=== PATIENT | male | born 1965 | race Caucasian/White ===

== ENCOUNTER 2020-04-25 14:29 | Outpatient (CLI) | payer OTHER, SELFPAY ==
--- NOTE | ~2020-04-25 | US_ITS ---
EXAMINATION: US thyroid DATE: 04/25/2020 15:15 INDICATION: Cervicalgia TECHNIQUE: Multiple ultrasound images of the thyroid were obtained. COMPARISON: None. FINDINGS: The right thyroid lobe measures 4.8 x 2.5 x 1.4 cm. The left thyroid lobe measures 3.5 x 1.6 x 1.3 c m. Wider than tall 9 x 7 x 4 mm anechoic to hypoechoic spongiform-appearing nodule in the mid right thyroid with smooth margins, posterior acoustic enhancement and no internal echogenic foci (TI-RADS 2 , not suspicious, no FNA recommended). There is normal echotexture, echogenicity and vascular flow th roughout the thyroid gland. IMPRESSION: 1. Likely benign 9 mm TI RADS 2 spongiform nodules in the right thyroid which does not meet criteria for biopsy or imaging follow-up. Recommend clinical follow-up with repeat imaging if there are change s on physical exam. Reviewed, dictated and finalized at location A. IMPRESSION: 1. Likely benign 9 mm TI RADS 2 spongiform nodules in the right thyroid which d oes not meet criteria for biopsy or imaging follow-up. Recommend clinical follo w-up with repeat imaging if there are changes on physical exam.
== END 2020-04-25 14:30 | disposition home or self-care (01) ==
PROVIDERS: PCP Family Medicine; Visit Provider Physician Assistant
DX: E07.9 Disorder of thyroid, unspecified (principal); M54.2 Cervicalgia
CPT/HCPCS: 76536

== ENCOUNTER → 2021-04-24 10:30 | Outpatient (CLI) | payer OTHER, SELFPAY ==
--- NOTE | ~2021-04-24 | US_ITS ---
US abdomen limited INDICATION: Epigastric pain. Bloating. Discomfort after eating. PROCEDURE: Realtime right upper abdominal ultrasound. COMPARISON: No prior studies for comparison. FINDINGS: The pancreas is normal without focal mass or pancreatic ductal dilation. Liver echotexture is normal without focal mass or intrahepatic biliary dilatation. There is normal directional flow i n the portal vein. The gallbladder is normal without stones, gallbladder wall thickening or pericholecystic fluid. Comm on bile duct measures 3 mm. No sonographic Lee's sign. Right renal echotexture is grossly unremar kable. IMPRESSION: 1: Normal limited abdominal ultrasound. Reviewed, dictated and finalized at location A.
== END ==
PROVIDERS: PCP Family Medicine; Visit Provider Family Medicine
DX: R10.13 Epigastric pain (principal)
CPT/HCPCS: 76705

== ENCOUNTER 2021-05-22 09:40 | Outpatient (CLI) | payer OTHER, SELFPAY ==
--- NOTE | ~2021-05-22 | US_ITS ---
EXAMINATION: US thyroid EXAM DATE: 05/22/2021 10:17 INDICATION: nontoxic single thyroid nodule. TECHNIQUE: Multiple grayscale and Doppler images of the thyroid were obtained (by a technologist who performed the scan) and subsequently reviewed. Individual nodules and recommendations may be reporte d in accordance with TI-RADS system as designated by the 2017 ACR White Paper TI-RADS committee. Comp arison is made to prior examination from 04/15/2020. FINDINGS: Right thyroid lobe measures 4.6 x 1.7 x 1.7 cm, the left measuring 3.4 x 1.7 x 1.2 cm. Right thyroid lobe nodule measuring 9 x 4 x 8 mm, size and spongiform appearance stable, likely benign. Notation was made that technologist scanned neck superior to the thyroid in the area of concern, and there was no lymphadenopathy or other sonographic abnormality. IMPRESSION: 1. Unchanged subcentimeter right thyroid lobe nodule likely benign. Return to clinical follow-up and if additional palpable abnormality develops a repeat ultrasound can be obtained. Reviewed, dictated and finalized at location A.
== END 2021-05-22 09:41 | disposition home or self-care (01) ==
PROVIDERS: PCP Family Medicine; Visit Provider Otolaryngology
DX: E04.1 Nontoxic single thyroid nodule (principal)
CPT/HCPCS: 76536

== ENCOUNTER 2021-08-07 06:34 | Outpatient (CLI) | payer OTHER, SELFPAY ==
--- NOTE | ~2021-08-07 | NM_ITS ---
EXAMINATION: NM hepatobiliary wo pharm EXAM DATE: 08/07/2021 10:11 INDICATION: R10.13 - Epigastric pain TECHNIQUE: 4.9 mCi Tc-99m mebrofenin (Choletec) was administered intravenously. Scintigraphic images of the abdomen were obtained for one hour. To obtained gallbladder ejection fraction, patient drank 8 ounces of Ensure and imaging of the gallbladder obtained for one hour following ingestion. Gallbl adder ejection fraction was calculated by the technologist. Correlation is made to right upper quadra nt sonogram 04/24/2021. FINDINGS: There is normal clearance of radiotracer from the blood pool. There is homogeneous tracer u ptake by the liver. Activity progresses to the gallbladder and bowel. The gallbladder ejection fract ion (GBEF) is 72% (most patients with gallbladder dysfunction have GBEF < 35%, but there is slight ov erlap with the normal range of 33-90% using this protocol).] IMPRESSION: Gallbladder ejection fraction 72%, within normal range. Reviewed, dictated and finalized at location A.
== END 2021-08-07 06:35 | disposition home or self-care (01) ==
PROVIDERS: PCP Family Medicine; Visit Provider Family Medicine
DX: R10.13 Epigastric pain (principal)
CPT/HCPCS: 78226; A9537; J2785

== ENCOUNTER 2022-06-23 11:53 | Outpatient (CLI) | payer OTHER, SELFPAY ==
--- NOTE | 2022-06-23 12:45 | ECHO_ITS ---
Patient Info Name: Maninder Gooden Age: 56 years : 1965 Gender: Male Ht: 69 in Wt: 185 lbs BSA: 2.04 m2 HR: 68 bpm BP: 163 / 93 mmHg Technical Quality: Fair Exam Date: 06/23/2022 1:21 PM Exam Location: [facility] Patient Status: Outpatient Admit Date: 06/23/2022 Staff Ordering Physician: Bianca Wade Safety Spec: Catalina Guerrier RDCS Attending Provider: Bianca Wade Referring Physician: Mauro HARDWICK; Exam Type: CA echo doppler color flow Study Info Indications R01.1 - Cardiac murmur, unspecified Complete two-dimensional, color flow and Doppler transthoracic echocardiogram is performed. Summary 1. Complete two-dimensional, color flow and Doppler transthoracic echocardiogram is performed. 2. Left ventricular chamber dimension is normal. 3. Left ventricular systolic function is normal, estimated at 60-65%. 4. The left ventricular diastolic function is normal. 5. E/e' 5 is not elevated. 6. There is trace mitral valve regurgitation. 7. There is trace tricuspid valve regurgitation. 8. No pulmonary hypertension, estimated pulmonary arterial systolic pressure is 25 mmHg. Left Ventricle E/e' 5 is not elevated. Left ventricular chamber dimension is normal. Left ventricular systolic function is normal, estimated at 60-65%. The left ventricular diastolic function is normal. Right Ventricle Right ventricular chamber dimension is normal. Right ventricular systolic function is normal. Left Atria Left atrial chamber dimension is normal. Right Atria Right atrial chamber dimension is normal. Aortic Valve The aortic valve is trileaflet. There is no aortic valve stenosis. There is no aortic valve regurgitation. Pulmonic Valve There is no pulmonic regurgitation. Mitral Valve There is no mitral valve stenosis. There is trace mitral valve regurgitation. Tricuspid Valve There is trace tricuspid valve regurgitation. No pulmonary hypertension, estimated pulmonary arterial systolic pressure is 25 mmHg. Pericardium/Pleural There is no pericardial effusion. Inferior Vena Cava Normal inferior vena cava with >50% collapse upon inspiration consistent with normal right atrial pressure, 5 mmHg. Aorta The aortic root size at the sinus of Valsalva is normal. Left Ventricular Outflow Tract Name Value Normal LVOT 2D LVOT Diameter 2.0 cm LVOT Doppler LVOT Peak Gradient 6 mmHg LVOT Mean Gradient 3 mmHg LVOT VTI 23 cm LVOT VTI/AV VTI Ratio 1.0 LVOT Stroke Volume 70 ml LVOT CO 13.9 l/min LVOT CI 6.8 l/min/m2 Pulmonic Valve Name Value Normal PV Doppler PV Peak Gradient 4
== END 2022-06-23 11:54 | disposition home or self-care (01) ==
PROVIDERS: PCP Family Medicine; Visit Provider Nurse Practitioner Family
DX: R01.1 Cardiac murmur, unspecified (principal)
CPT/HCPCS: 93306

== ENCOUNTER → 2022-07-26 08:11 | Outpatient (CLI) | payer OTHER, SELFPAY ==
--- NOTE | ~2022-07-26 | MR_ITS ---
EXAMINATION: MRA brain wo con DATE: 07/26/2022 08:54 INDICATION: Right-sided headache. TECHNIQUE: Magnetic resonance angiography (MRA) of the brain was performed without intravenous contra st with T1-weighted SPGR by the 3D [id number] technique. Maximum intensity projection 3D-reconstr uctions were obtained. COMPARISON: Brain MRI 10/23/2011 FINDINGS: Left vertebral artery is dominant. There is no significant stenosis of basilar artery or the posterio r cerebral arteries. There is no significant stenosis of the intracranial internal carotid arteries o r anterior or middle cerebral arteries. Anterior communicating artery is normal. Posterior communicat ing arteries are not identified. There is no aneurysm. IMPRESSION: 1. Normal MRA. Reviewed, dictated and finalized at location A. IMPRESSION: 1. Normal MRA.
== END ==
PROVIDERS: PCP Family Medicine; Visit Provider Nurse Practitioner Family
DX: G44.83 Primary cough headache (principal)
CPT/HCPCS: 70544

== ENCOUNTER → 2022-09-24 13:34 | Outpatient (CLI) | payer OTHER, SELFPAY ==
--- NOTE | ~2022-09-24 | XR_ITS ---
XR shoulder RT min 2V DATE: 09/24/2022 14:03 INDICATION: Right shoulder pain and popping for one month. No known injury. TECHNIQUE: 4 views COMPARISON: None FINDINGS: Mild inferior acromioclavicular spurring. No fracture or dislocation, periosteal reaction or bone destruction or abnormal soft tissue calcifica tion of the right shoulder. IMPRESSION: Mild degenerative change at the right acromioclavicular joint Reviewed, dictated and finalized at location A. R QUALITY ANALYST
== END ==
PROVIDERS: PCP Family Medicine; Visit Provider Physician Assistant
DX: M19.011 Primary osteoarthritis, right shoulder (principal)
CPT/HCPCS: 73030

== ENCOUNTER 2024-07-18 14:43 | Outpatient (CLI) | payer OTHER, SELFPAY ==
--- NOTE | ~2024-07-18 | US_ITS ---
EXAMINATION: US thyroid DATE: 07/18/2024 15:02 INDICATION: Thyroid nodule. TECHNIQUE: Multiple ultrasound images of the thyroid were obtained. COMPARISON: Ultrasound 05/22/2021 FINDINGS: The right thyroid lobe measures 4.7 x 1.5 x 1.7 cm. The left thyroid lobe measures 3.6 x 1.3 x 1.1 c m. In the right thyroid lobe, there is an 8 mm solid, hypoechoic, wider than tall nodule with irregu lar margin without echogenic foci (TI-RADS TR4). IMPRESSION: 1. Stable small right thyroid nodule, likely not clinically significant. No follow-up is needed. Reviewed, dictated and finalized at location A. IMPRESSION: 1. Stable small right thyroid nodule, likely not clinically significant. No fol low-up is needed.
== END 2024-07-18 14:44 | disposition home or self-care (01) ==
LOC: MICIMG 14:45
PROVIDERS: PCP Family Medicine; Visit Provider Nurse Practitioner Family
DX: E04.1 Nontoxic single thyroid nodule (principal)
CPT/HCPCS: 76536

== ENCOUNTER 2024-08-02 09:53 | Outpatient (CLI) | payer OTHER, SELFPAY ==
--- NOTE | ~2024-08-02 | US_ITS ---
EXAMINATION: US soft tissue groin RT DATE: 08/02/2024 10:10 INDICATION: Other intra-abdominal and pelvic swelling. TECHNIQUE: Multiple grayscale and Doppler ultrasound images of the right groin were obtained. COMPARISON: CT abdomen and pelvis 10/28/2012 FINDINGS: There is a right inguinal hernia containing fat. No lymphadenopathy. IMPRESSION: 1. Right inguinal hernia containing fat. Reviewed, dictated and finalized at location A.
== END 2024-08-02 09:54 | disposition home or self-care (01) ==
LOC: MICIMG 09:54
PROVIDERS: PCP Family Medicine; Visit Provider Physician Assistant
DX: R19.09 Other intra-abdominal and pelvic swelling, mass and lump (principal); K40.90 Unilateral inguinal hernia, without obstruction or gangrene, not specified as recurrent
CPT/HCPCS: 76882

== ENCOUNTER 2024-09-15 10:05 | Outpatient (CLI) | payer OTHER, SELFPAY ==
--- NOTE | 2024-09-15 10:16 | ECG_ITS ---
Test Date: 2024-09-15 10:33:52 Measurements Intervals [place] Rate: 63 P: 36 SD: 138 QRS: 33 QRSD: 118 T: 34 QT: 397 QTc: 409 Interpretive Statements SINUS RHYTHM INTRAVENTRICULAR CONDUCTION DELAY BORDERLINE ECG No previous ECG available for comparison Electronically Signed On 09-15-2024 10:36:23 ELECTRIC REFRIGERATOR SERVICER by Nii Lay D.O.
== END 2024-09-15 10:06 | disposition home or self-care (01) ==
LOC: ANHSURGERY 10:08
PROVIDERS: PCP Family Medicine; Visit Provider Surgery
DX: E78.5 Hyperlipidemia, unspecified (principal); K40.90 Unilateral inguinal hernia, without obstruction or gangrene, not specified as recurrent; Z01.818 Encounter for other preprocedural examination; I45.9 Conduction disorder, unspecified
CPT/HCPCS: 36415; 86850; 86900; 86901; 93005

== ENCOUNTER 2024-09-19 01:19 | Day surgery (SDC) | payer OTHER, SELFPAY ==
[2024-09-12 11:04] VITALS: BMI 28.8
--- NOTE | 2024-09-12 11:05 | PC.NURSE ---
Report to the Outpatient Waiting Room, entrance under the green pavilion located off [facility], at time _0730_ on date _[id number]_. Planned Procedure Time: _0930_.? Time changes happen often and if your time is changed the preop area will call you the afternoon before. - You and your visitor will be asked to self-screen and do not enter if you have any COVID symptoms. Please call surgeon if you need to reschedule. - A mask is optional within the hospital at this time. Patients may have clear liquids (water, carbonated beverages, clear teas, apple juice) until 3 hours prior to surgery with a maximum of 20 ounces. - No food from midnight until time of surgery and no smoking Take only the following medications with a SIP of water on the morning of surgery: None DO NOT STOP ANY OF YOUR OTHER PRESCRIPTION MEDICATIONS PRIOR TO SURGERY EXCEPT THE FOLLOWING Medications to discontinue per physician ___None____ Please no make-up, nail faroese, hairspray, perfume, deodorant, or body powder the day of surgery.? No jewelry (including any body piercings) or valuables the day of surgery, leave them at home.? Please take a shower or bath the night before, or the morning of, surgery with an antibacterial soap.? Wear comfortable, loose fitting clothing.? - Jewelry must be removed prior to entering the operating room.? Rings and piercings that are not removed may be cut off. - The hospital will not accept responsibility for valuables.? - Please leave all valuables, including medications, at home the day of surgery. If you are going home after surgery, a licensed haul truck driver must drive you home.? - NO public transportation without another adult if you receive anesthesia. - We recommend that an adult stay with you for 24 hours following discharge. - We also recommend that you do not drive, make important decision, drink alcoholic beverages, or take any drugs that were not prescribed by your health care provider for at least 24 hours after your discharge time. Follow any additional instructions given to you from your surgeon. Telephone instructions given to _Mark__and asked if any additional questions and then verbalized understanding. Patient advised to call surgeon office or pre surgery nurse liaison [phone] if any additional questions.
[2024-09-19] VITALS (8 sets, daily range): BP systolic 127–169; BP diastolic 71–91; PULSE 62–72; RESP 10–16; TEMP 36.4; O2SAT 98–100; BMI 29.0
--- NOTE | 2024-09-19 07:21 | PM.IMHP ---
H&P: HPI History of Present Illness Date/Time: 09/19/24 07:21 Chief Complaint: right inguinal hernia Narrative: Maninder is a 58 y/o male who presents to the office at the request of Chaparro Michelle PA-C for an evaluation of an inguinal hernia. Patient reports right groin pain and a bulge on right side that he noticed approximately 2 months ago. He states he has recently had left sided abdominal pain within the last week as well. He is unsure if related to the hernia. Patient had US done on 08/02/24 which showed a right inguinal hernia containing fat. Review of Systems Review of Systems: All systems reviewed & are unremarkable except as noted in HPI and below PMFSH Past Medical History Medical History COPD (chronic obstructive pulmonary disease) Essential (primary) hypertension GERD (gastroesophageal reflux disease) HLD (hyperlipidemia) Surgical History Surgical History Status post arthroscopy of left knee Status post hernia repair Status post orchiopexy Family History Family History Father Hypertension Family history of diabetes mellitus in first degree relative Family history of coronary artery disease Mother Hypertension Cerebrovascular accident Family history of diabetes mellitus in first degree relative Family history of rheumatoid arthritis Sibling Hypertension Family history of diabetes mellitus in first degree relative Social History Social History Smoking packs per day: 1 Smoking cigarettes per day: 20.0 Years smoked: 4 Smoking pack-years: 4.00 Smoking status: Never smoker Tobacco type: cigarettes Second hand tobacco smoke exposure: No Smoking end date: 11/09/84 Alcohol intake: current Drinks per week: 12 Substance use: never Substance use type: does not use Living arrangements: with family Occupation/Education: occupation Gender identity (if verbalized by the patient): Male Spiritual care concerns: No Meds Home Medications and Allergies Home Medications Medication Instructions Recorded Confirmed Type amlodipine 5 mg tablet 5 mg PO DAILY #90 tabs 03/17/24 09/12/24 Rx losartan 100 mg tablet See Rx Instructions .Route 03/18/24 09/12/24 Rx .COMPLEX #90 tabs esomeprazole magnesium 20 mg 20 mg PO DAILY PRN Acid Reflux 09/12/24 09/12/24 History capsule,delayed release (Nexium) pravastatin 40 mg tablet 40 mg PO DAILY #90 tabs 09/13/24 Rx Allergies Allergy/AdvReac Type Severity Reaction Status Date / Time phenobarbital Allergy Unknown Anxiety Verified 09/12/24 10:55 Exam Const: General: cooperative, comfortable and no acute distress Resp: Auscultation: clear to auscultation bilaterally Cardio: Rate: regular rate Rhythm: regular rhythm GI: Inspection: normal to inspection and non-distended GI Palp: No abdominal tenderness and Yes Soft to palpation Other: reducible right inguinal hernia, no left inguinal hernia on exam Assessment and Plan Assessment and plan (1) Right inguinal hernia: Code(s): K40.90 - Unilateral inguinal hernia, without obstruction or gangrene, not specified as recurrent Status: Acute Assessment and Plan: will set up for robotic assisted repair with mesh
--- NOTE | 2024-09-19 07:23 | WPDHPUPDATE1 ---
History and Physical Update Update Date/Time: 09/19/24 07:23 History and Physical has been reviewed, including an updated exam of the patient. There are NO changes in the patient's condition. Risks, benefits, and alternatives have been discussed and questions answered. Patient agrees to proceed with procedure.
[2024-09-19] MEDS: KETOROLAC 15 MG/ML VIAL (*BKC) IV PUSH (08:25)
[2024-09-19] MEDS: ACETAMINOPHEN 500 MG TABLET 1000 MG PO (08:25)
--- NOTE | 2024-09-19 09:11 | WPDANESEPPF ---
Anes - Initial Pre Proc Eval Procedure: Operation Date: 09/19/24 09:30 Proposed Procedures p Robotic Right Inguinal Hernia Repair with Mesh - Lia Hua MD Date/Time: 09/19/24 09:11 Surgeon: Lia Hua MD Pre Op Diagnosis: right inguinal hernia Patient Data Age: 58 Gender: M Height: 1.75 m Weight: 89.1 kg Last Vital Signs Temp 36.4 C L 09/19/24 08:15 Pulse 72 09/19/24 08:15 Resp 16 09/19/24 08:15 BP 169/83 H 09/19/24 08:15 Pulse Ox 98 09/19/24 08:15 O2 Del Method Room Air 09/19/24 08:15 Allergies Allergy/AdvReac Type Severity Reaction Status Date / Time phenobarbital Allergy Unknown Anxiety Verified 09/19/24 08:27 Home Medications Medication Instructions Recorded Confirmed Type amlodipine 5 mg tablet 5 mg PO DAILY #90 tabs 03/17/24 09/12/24 Rx losartan 100 mg tablet See Rx Instructions .Route 03/18/24 09/12/24 Rx .COMPLEX #90 tabs esomeprazole magnesium 20 mg 20 mg PO DAILY PRN Acid Reflux 09/12/24 09/12/24 History capsule,delayed release (Nexium) pravastatin 40 mg tablet 40 mg PO DAILY #90 tabs 09/13/24 Rx Patient hx anesthesia problems: none Family hx anesthesia problems: none Results Review: All pre-operative results and documents have been reviewed as part of the pre-operative evaluation. [facility] Past Medical History Medical History COPD (chronic obstructive pulmonary disease) Essential (primary) hypertension GERD (gastroesophageal reflux disease) HLD (hyperlipidemia) Surgical History Surgical History Status post arthroscopy of left knee Status post hernia repair Status post orchiopexy Family History Family History Father Hypertension Family history of diabetes mellitus in first degree relative Family history of coronary artery disease Mother Hypertension Cerebrovascular accident Family history of diabetes mellitus in first degree relative Family history of rheumatoid arthritis Sibling Hypertension Family history of diabetes mellitus in first degree relative Social History Social History Smoking packs per day: 1 Smoking cigarettes per day: 20.0 Years smoked: 4 Smoking pack-years: 4.00 Smoking status: Never smoker Tobacco type: cigarettes Second hand tobacco smoke exposure: No Smoking end date: 11/09/84 Alcohol intake: current Drinks per week: 12 Substance use: never Substance use type: does not use Living arrangements: with family Occupation/Education: occupation Gender identity (if verbalized by the patient): Male Spiritual care concerns: No Anes - Eval Final PreProcedure Day of Procedure 09/19/24 09:11 Patient weight: overweight Heart: regular rate and rhythm Lungs: clear to auscultation Airway: Mallampati scale class II Neurological: alert and oriented Last oral intake: >/= 8 hours ASA classification: III Emergent: no Anesthetic plan: proceed Anesthesia type and monitoring: general ETT and standard monitoring Results Review: All pre-operative results and documents have been reviewed as part of the pre-operative evaluation. Informed Consent: The patient's anesthetic plan and its attendant risks and benefits were discussed with the patient/family/POA. Questions were solicited and answers provided to the satisfaction of the patient/family/POA.
[2024-09-19] MEDS: ceFAZolin 2 GM/D5W 50 ML 2 GM/50 ML BAG IVPB (09:22)
[2024-09-19] MEDS: BUPIVACAINE/EPINEPHRINE 0.5% 50 ML VIAL 30 ML INFILTRATE (10:03)
--- NOTE | 2024-09-19 10:30 | W.PM.PROC2 ---
Procedure Note - Detailed Date of Procedure 09/19/24 Pre-op Diagnosis right inguinal hernia Post-op Diagnosis Same Procedure Performed robotic assisted right inguinal hernia repair with mesh Surgeon Lia Hua MD Anesthesia General and Local Indications 58 yr-old male with progressively worsening right inguinal hernia over the last few months Findings indirect right inguinal hernia Description of Procedure Patient was brought into the operating room and placed in the supine position. After adequate induction of general anesthesia, the patient was prepped and draped in normal sterile fashion. A time-out was then done to verify the patient's identity, as well as the procedure being performed. Began by making a 8 mm incision in the supraumbilical region, a Veress needle was then placed into the peritoneal cavity. CO2 gas was then insufflated and after adequate pneumoperitoneum was achieved, the Veress needle was removed. I then placed an 8 mm trocar through this incision. I then placed the endoscope through this trocar site and under direct visualization placed 2 further 8 mm ports in the right and left mid abdomen. The [employer] robot was then docked to the 3 trocar sites. I then scrubbed out and went to the robotic console. Upon examining the pelvis, it was noted that the patient had a moderate right inguinal hernia. The left side was examined and no hernia defect was noted , though a previous plug mesh was noted to be well healed. I began by making a preperitoneal flap approximately 6 cm superior to the defect. This flap was carried medially past the umbilical ligaments in laterally to the transversalis. It then began dissection of my medial compartment taking this down to the pubic tubercle. I then began the lateral dissection taking this down to the transversalis fascia. Once these compartments were achieved, I began dissection around the cord structures. A moderate sized indirect hernia was noted at this point. Using careful dissection, was able to reduce indirect hernia sac off the cord structures. Once this was adequately done, I went ahead and placed a large piece of 3D Max mesh into the abdominal cavity. The mesh was carefully positioned, centering the center of the mesh over the indirect defect. Once this was done, was very satisfied with our repair. Using 3-0 Vicryl sutures, I tacked the mesh medially to Griffin's ligament. Two lateral sutures were placed from the mesh to the transversalis fascia. I then closed the peritoneal flap with a running 2.0 V Lock suture. The abdomen was then desufflated, and all ports were removed. All incisions were then closed with the 4.0 monocryl suture. Dermabond was placed on each wound. The patient tolerated the procedure well, was extubated in the operating room postoperatively, and will now be transferred to the recovery room in stable condition. Implants large 3DMax mesh Estimated Blood Loss 10 Drains No Packing No Pathology None sent Complications No immediate complications Condition Stable Disposition PACU [facility] Billing Surgery - Charge Forward: Surgery Billing
[2024-09-19] MEDS: LACTATED RINGERS 1,000 ML 30 ML IV CONT ×2 (10:33)
[2024-09-19] MEDS: oxyCODONE HCL (*CRX) 5 MG TAB IR PO (11:42)
--- NOTE | 2024-09-19 11:48 | SUR.PHASEII ---
Pt ambulated to bathroom and voided unmeasured amt of clear yellow urine without difficulty.
== END 2024-09-19 12:15 | disposition home or self-care (01) ==
PROVIDERS: PCP Family Medicine; Visit Provider Surgery
PROC: 8E0Y4CZ Robotic Assisted Procedure of Lower Extremity, Percutaneous Endoscopic Approach (ICD-10-PCS; CPT 49650; principal; 2024-09-19 09:30)
DX: K40.90 Unilateral inguinal hernia, without obstruction or gangrene, not specified as recurrent (principal); I10 Essential (primary) hypertension; E78.5 Hyperlipidemia, unspecified; K21.9 Gastro-esophageal reflux disease without esophagitis; Z87.891 Personal history of nicotine dependence
CPT/HCPCS: 49650; S2900; A9270; C1781; J0690; J1100; J1171; J1885; J2003; J2250; J2405; J2704; J3010; J7120

== ENCOUNTER 2025-04-04 10:57 | Emergency (ER) | payer OTHER, SELFPAY ==
--- NOTE | ~2025-04-04 | US_ITS ---
EXAMINATION:US venous doppler LE RT INDICATION:Evaluate for DVT TECHNIQUE: Multiple grayscale, color flow and Doppler images of the right lower extremity deep venous systems were obtained and reviewed. COMPARISON:No prior studies for comparison. FINDINGS: The common femoral, superficial femoral and popliteal veins demonstrate normal respiratory variation, augmentation and compressibility. Color flow is also seen within the posterior tibial, pe roneal, greater saphenous and profunda veins. IMPRESSION: 1: No lower extremity deep venous thrombosis. Reviewed, dictated and finalized at location A.
--- NOTE | ~2025-04-04 | XR_ITS ---
HISTORY: knee swelling, PAIN COMPARISON: None TECHNIQUE: 3 views of the right knee were performed FINDINGS: Acute displaced fracture of the lateral superior margin of the patella (osteochondral fracture). The degree of fracture displacement is 4.3 mm. Alternatively, this may represent a lateral bipartite patella, which correlation with patient's prese nting history (query a history of focused trauma) is recommended. Medial tibiofemoral joint space narrowing is identified. No suprapatellar joint effusion is identified. The infrapatellar joint space is clear. IMPRESSION: Findings within the lateral margin of the patella which may represent acute minimally di splaced osteochondral fracture versus a lateral bipartite patella. Query a history of trauma. Reviewed, dictated and finalized at location A. IMPRESSION: Findings within the lateral margin of the patella which may repres ent acute minimally displaced osteochondral fracture versus a lateral bipartite patella. Query a history of trauma.
[2025-04-04 10:59] VITALS: BP 218/97; PULSE 83; RESP 16; TEMP 36.8; O2SAT 100
--- OUTSIDE RECORDS SUMMARY | 2025-04-04 11:01 | XMS_ITS | Clinical Summary ---
Author Organization [facility] Address [address] [place] [address] Phone Care Team Providers Care Civil Manager Name Role Phone Maycol Disla MD Primary Care Provider [phone] Allergies Active Allergy Reactions Criticality Noted Date Comments Lisinopril Cough Low 07/27/2014 Phenobarbital Other (See Comments) Makes him hyper Medications Aspirin, Buffered 81 mg Oral Tab Take 1 Tab by mouth daily. Active OMEGA-3 FATTY ACIDS (FISH OIL ORAL) Takes by mouth daily Active rosuvastatin (CRESTOR) 20 mg tablet Take 1 Tab by mouth daily at bedtime. 90 Tab 3 02/14/2014 Active omeprazole (PRILOSEC) 20 mg Capsule, Delayed Release(E.C.) Take 20 mg by mouth daily. Active losartan-hydroch lorothiazide (HYZAAR) 100-25 mg tablet Take 1 Tab by mouth daily. Active Active Problems Patient Care Coordination No te Formatting of this note migh t be different from the original. Ham Sawyer - Dr. Felix Case Problem Noted Date Diagnosed Date Family history of premature coronary heart disea se 02/01/2014 Mixed hyperlipidemia 01/09/2014 Essential hypertension, benign 08/09/2013 Family History Medical History Relation Name Comments Heart Surgery Brother Jose CABG Leukemia Daughter Diabetes Father Heart Attack Father Heart Surgery Father Hypertension Father Stroke Father Diabetes Mother Relation Name Status Comments Brother Jose Daughter Father Mother Social History Tobacco Use Types Packs/Day Years Used Date Smoking Tobacco: Former Cigarettes 1 3 1 12/29/1980 - 10/28/1984 Smokeless Tobacco: Never Alcohol Use Standard Drinks/Week Comments Yes 11.7 (1 standard drink = 0.6 oz pure alcohol) Sex and Gender Information Value Date Recorded Sex Assigned at Not on file Legal Sex Male 9:10 AM CDT Gender Identity Not on file Sexual Orientation Not on file Last Filed Vital Signs Vital Sign Reading Time Taken Comments Blood Pressure 160/93 07/27/2014 11:55 AM CDT Pulse 82 07/27/2014 11:55 AM CDT Temperature - - Respiratory Rate 12 02/01/2014 3:30 PM CDT Oxygen Saturation 97% 07/27/2014 11:55 AM CDT Inhaled Oxygen Concentration - - Weight 85.3 kg (188 lb) 07/27/2014 11:55 AM CDT Height 175.3 cm (5' 9) 07/27/2014 11:55 AM CDT Body Mass Index 27.76 07/27/2014 11:55 AM CDT Plan of Treatment Health Maintenance Due Date Last Done Comments DTAP/TDAP/TD VACCINES (1 - Tdap) 1982 COLORECTAL SCREENING 2008 Colorectal Cancer Screening 2008 FIT-DNA Q 3 years 2008 FIT/FOBT Q 1 year 2008 Flex Sig/CT Colonography Q 5 years 2008 ZOSTER VACCINE (1 of 2) 2013 INFLUENZA VACCINE (#1) 2024 RSV VACCINE (60+ or ) (1 - 1-dose 75+ series) [address] [place] [address] [address] BLUE ACCESS/TRUE BLUE PPO Care Teams Civil Manager Relationship Specialty Start Date End Date Maycol Disla MD PCP - General Internal Medicine 07/21/13
--- NOTE | 2025-04-04 12:41 | ED.EXTPRO ---
HPI - Extremity Problem General Chief complaint: Extremity Problem,Nontraumatic Stated complaint: swelling to right leg Time Seen by Provider: 04/04/25 12:11 History of Present Illness HPI Narrative: 59-year-old male presented to the emergency department for evaluation for right lower extremity swelling. Patient states he did work out on Thursday and did notice some increased swelling around the knee and over the course of the week the tenderness at the knee has persisted and patient has had some swelling down into the right ankle. Patient has no issues with the left leg. Patient denies any chest pain or shortness of breath. Patient has no history of congestive heart failure. Related Data Home Medications ?Medication ?Instructions ?Recorded ?Confirmed ?Last Taken ?Type esomeprazole magnesium 20 mg 20 mg PO DAILY PRN Acid Reflux 09/12/24 01/03/25 09/18/24 History capsule,delayed release (Nexium) Allergies Allergy/AdvReac Type Severity Reaction Status Date / Time phenobarbital Allergy Unknown Anxiety Verified 04/04/25 11:01 Review of Systems Review of Systems: All systems reviewed & are unremarkable except as noted in HPI and below PMFSH Past Medical History Medical History COPD (chronic obstructive pulmonary disease) Essential (primary) hypertension GERD (gastroesophageal reflux disease) HLD (hyperlipidemia) Surgical History Surgical History Hx of right inguinal hernia repair robo assisted RIH repair w mesh 09/19/24 Harry Hua MD Status post arthroscopy of left knee Status post hernia repair Status post orchiopexy Family History Family History Father Hypertension Family history of diabetes mellitus in first degree relative Family history of coronary artery disease Mother Hypertension Cerebrovascular accident Family history of diabetes mellitus in first degree relative Family history of rheumatoid arthritis Sibling Hypertension Family history of diabetes mellitus in first degree relative Social History Social History (Updated 01/03/25 @ 08:21 by Karma Steven MA) Smoking packs per day: 0 Smoking cigarettes per day: 0.0 Years smoked: 4 Smoking pack-years: 0.00 Smoking status: Never smoker Tobacco type: cigarettes Second hand tobacco smoke exposure: No Smoking end date: 11/09/84 Alcohol intake: current Drinks per week: 12 Substance use: never Substance use type: does not use Living arrangements: with family Occupation/Education: occupation Gender identity (if verbalized by the patient): Male Spiritual care concerns: No Exam Narrative: APPEARANCE: Well appearing, no pain, no distress, well-nourished. HEAD: normocephalic, atraumatic. EYES: PERRLA/EOMI, conjunctivae clear. NOSE: Normal no drainage EARS:TMS clear with good light reflex. THROAT: Pharynx clear, no exudate. NECK: Supple. No adenopathy, no masses. RESPIRATORY: Airway patent, respirations nonlabored. Clear to auscultation bilaterally, no rales, rhonchi, wheezing. CARDIOVASCULAR: Regular rate and rhythm without murmurs rubs or gallops. ABDOMINAL: Soft, nontender, nondistended, normal bowel sounds MUSCULOSKELETAL: Right knee swelling, with no erythema, right ankle edema, no posterior calf tenderness to palpation NEURO: Alert. Cranial nerves II through XII intact. Good gait. Good coordination SKIN: Warm, dry. Normal Color Course Vital Signs Vital signs: Vital Signs Temperature 98.3 F 04/04/25 10:59 Pulse Rate 83 04/04/25 10:59 Respiratory Rate 16 04/04/25 10:59 Blood Pressure 218/97 H 04/04/25 10:59 Pulse Oximetry 100 04/04/25 10:59 Oxygen Delivery Room Air 04/04/25 10:59 Temperature 98.3 F 04/04/25 10:59 Pulse Rate 67 04/04/25 12:52 Respiratory Rate 16 04/04/25 12:52 Blood Pressure 158/88 H 04/04/25 12:52 Pulse Oximetry 99 04/04/25 12:52 Oxygen Delivery Room Air 04/04/25 10:59 MDM - Extremity (Nontraumatic) MDM Narrative Medical decision making narrative: 59-year-old male presents to the emergency department for evaluation for right knee pain. Patient's blood pressure was elevated on arrival on recheck it was more reasonable. Patient denies any chest pain or shortness of breath. Patient denies any significant pain with ambulation, his primary concern about the lower extremity edema. Ultrasound was negative for DVT. X-ray did show findings within the lateral margin of the patella which may represent acute minimally displaced osteochondral fracture versus a lateral bipartite patella. Patient reports he does have known by partake patella. No tenderness to the patella with palpation. Aspect knee strain versus internal derangement. Patient will be provided an Zacarias wrap for comfort he was instructed to take NSAIDs for inflammation and patient will have close follow-up with Orthopedics. All questions were addressed. Differential Diagnosis Differential diagnosis: Likely superficial thrombophlebitis, deep venous thrombosis of upper extremity, lower extremity edema and deep vein thrombosis of lower extremity Imaging Data Radiologist's impression: Impressions Knee X-Ray 04/04/25 13:28 IMPRESSION: Findings within the lateral margin of the patella which may represent acute minimally displaced osteochondral fracture versus a lateral bipartite patella. Query a history of trauma. Venous Doppler Study 04/04/25 13:43 IMPRESSION: 1: No lower extremity deep venous thrombosis. Discharge Plan Discharge Clinical Impression: Edema of right lower extremity, Internal derangement of knee Patient Disposition: Home Condition: Stable Instructions: Antibiotic Form, Crutch Instructions (ED), Knee Pain (ED) Additional Instructions: Zacarias wrap for comfort. Scheduled NSAIDs such as naproxen/Aleve for the next 3-5 days. Crutches for limited weight-bearing on the affected leg. Have close follow-up with Orthopedics. If you have any worsening symptoms then please call or return to the emergency department. Patient Language: Grenadian Prescriptions: No Action pravastatin 40 mg tablet 60 mg PO QHS Qty: 135 2RF esomeprazole magnesium [Nexium] 20 mg Capsule,Delayed Release(Dr/Ec) 20 mg PO DAILY PRN (Reason: Acid Reflux) losartan 100 mg tablet See Rx Instructions .ROUTE .COMPLEX Qty: 90 2RF Dose Instruction: TAKE 1 TABLET DAILY Rx Instructions: TAKE 1 TABLET DAILY amlodipine 5 mg tablet 5 mg PO DAILY Qty: 90 2RF Follow-up/Referrals: Carter Barajas MD [Primary Care Provider] - James Allen MD [Physician] -
[2025-04-04 12:52] VITALS: BP 158/88; PULSE 67; RESP 16; O2SAT 99
--- OUTSIDE RECORDS SUMMARY | 2025-04-04 13:22 | XMS_ITS | Clinical Summary ---
Author Organization [facility] Address [address] [place] [address] Phone Care Team Providers Care Air Conditioning Coil Assembler Name Role Phone Maycol Disla MD Primary Care Provider [phone] Allergies Active Allergy Reactions Criticality Noted Date [...] migh t be different from the original. Public Policy Associate - Dr. Felix Case Problem Noted Date [...] (1 - 1-dose 75+ series) [address] [place] [address] BLUE ACCESS/TRUE BLUE PPO Care Teams Air Conditioning Coil Assembler Relationship Specialty Start Date End Date Maycol Disla MD PCP - General Internal Medicine 07/21/13
--- NOTE | 2025-04-04 14:34 | PC.NURSE ---
Patient educated on use of crutches and right knee wrapped with FROYLAN bandage.
== END 2025-04-04 14:37 | disposition home or self-care (01) ==
PROVIDERS: Emergency Provider Emergency Medicine; PCP Family Medicine
DX: R60.0 Localized edema (principal); M23.91 Unspecified internal derangement of right knee; J44.9 Chronic obstructive pulmonary disease, unspecified; I10 Essential (primary) hypertension; E78.5 Hyperlipidemia, unspecified; K21.9 Gastro-esophageal reflux disease without esophagitis; Z87.891 Personal history of nicotine dependence; Z79.899 Other long term (current) drug therapy
CPT/HCPCS: 73562; 93971; 99284